=== PATIENT | female | born 1965 | race Caucasian/White ===

== ENCOUNTER 2016-10-06 12:01 | Emergency (ER) | payer BC ==
[2016-10-06 13:48] VITALS: BP 225/109
[2016-10-06 18:19] LABS: Hematocrit 39 % (35-47); Hemoglobin 12.5 g/dl (12.0-16.0); Mean Corpuscular HGB Conc 32 g/dl (31-36); Mean Corpuscular Hemoglobin 29 pg (27-31); Mean Corpuscular Volume 88 fL (80-97); Mean Platelet Volume 9 um3 (7.4-10.4); Red Cell Distribution Width 14 % (10.5-15); White Blood Count 7.4 10^3/ul (3.5-10.8)
[2016-10-06 18:39] LABS: Albumin 4.1 g/dL (3.2-5.2); BUN/Creatinine Ratio 9.7 (8-20); EGFR African American 110.7 (>60); EGFR Non-African American 86.1 (>60); Globulin 2.9 g/dL (2-4); Magnesium 2.1 mg/dL (1.9-2.7); Total Bilirubin 0.6 mg/dL (0.2-1.0)
[2016-10-06 18:42] LABS: TSH (Thyroid Stimulating Horm) 2.18 mcIU/mL (0.34-5.60)
--- NOTE | 2016-10-27 12:59 | UC ---
Flo Rey Aidan, scribed for Georgia Kaufman MD on 10/06/16 at 1328 . 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 Associated symptoms include JAMES and an episode of palpitations this morning. She denies any cough, cold, nausea, SOB, abdominal pain, urinary symptoms, numbness or tingling , or any Hx of diabetes. Hx of AFiB. Pt thinks that she may have had a miscarriage several weeks ago, however, she had spotting and then never got a test. Her last period before that was in May. 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 Aggravating Factor(s): Nothing - unknown Alleviating Factor(s): Nothing - unknown Associated Signs And Symptoms: Negative: Negative - JAMES, episode of palpitations Related Hx: Similar Episode - She has had similar episodes of htn previously - Allergies/Home Medications Allergies/Adverse Reactions: Allergies Allergy/AdvReac Type Severity Reaction Status Date / Time Penicillins [PCN] Allergy See Comment Verified 10/06/16 12:12 Home Medications: Home Medications NK [No Home Medications Reported] 10/06/16 [History Confirmed 10/06/16] PMH/Surg Hx/FS Hx/Imm Hx - Surgical History Surgical History: Yes Surgery Procedure, Year, and Place: cone bx and a d&c - Family History Known Family History: Positive: Hypertension, Diabetes, Renal Disease, Respiratory Disease - COPD - Social History Alcohol Use: Occasionally Substance Use Type: None Smoking Status (MU): Never Smoked Tobacco Review of Systems Constitutional: Negative Skin: Negative Eyes: Negative ENT: Negative Respiratory: Negative Cardiovascular: Palpitations, Other - HTN Gastrointestinal: Negative Genitourinary: Negative Motor: Negative Neurovascular: Negative Musculoskeletal: Negative Neurological: Headache Psychological: Negative All Other Systems Reviewed And Are Negative: Yes Physical Exam Triage Information Reviewed: Yes Appearance: Well-Nourished Vital Signs: Initial Vital Signs Temp 98.6 F 10/06/16 12:08 Pulse 69 10/06/16 12:08 Resp 18 10/06/16 12:08 BP 154/102 10/06/16 12:08 Pulse Ox 99 10/06/16 12:08 Vital Signs Reviewed: Yes Eye Exam: Normal ENT Exam: Normal ENT: Positive: Normal ENT inspection Respiratory Exam: Normal, Other - regular rate, no dyspnea, no tachypnea Cardiovascular Exam: Normal, Other - good general skin color, regular rate, good capillary refill Abdominal Exam: Normal Abdomen Description: Positive: Nontender, No Organomegaly, Soft Bowel Sounds: Positive: Present Musculoskeletal Exam: Normal Musculoskeletal: Positive: Strength Intact Neurological Exam: Normal, Other - nonfocal, grossly intact Psychological Exam: Normal, Other - responds easily and appropriately Skin Exam: Normal, Other - no visible or reported rash Diagnostics - EKG Cardiac Rate: Bradycardia - 55 BPM Cardiac Rhythm: Sinus: Normal - EKG 4930: SINUS RHYTHM Hypertension Course/Dx - Course Course Of Treatment: No new problems in CCC. Reviewed coa / need for f/u. Questions answered to the best of my ability. - Differential Dx/Diagnosis Provider Diagnoses: htn Discharge - Discharge Plan Condition: Stable Disposition: HOME Patient Education Materials: Hypertension (ED) Referrals: Echo Fairchild [Primary Care Provider] - Additional Instructions: Your blood pressure today was 154/102, which is hypertensive. Please follow up with your primary care provider for blood pressure monitoring and evaluation. Blood pressure elevation as above. Blood tests in ordered today: cbc cmp tsh magnesium level Go to the Emergency Department for any problems, including albeit not limited to : chest pain, new palpitations, shortness of breath, headache, weakness. 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 Call Echo Wheatley NP today to schedule follow up appointment with her tomorrow. The documentation as recorded by the Flo swenson Aidan accurately reflects the service I personally performed and the decisions made by me, Georgia Kaufman MD.
== END 2016-10-06 13:50 | disposition home or self-care (01) ==
LOC: UCEAST 12:01
DX: I10 Essential (primary) hypertension (principal); Z88.0 Allergy status to penicillin
CPT/HCPCS: 36415; 80053; 81003; 83735; 84443; 84702; 85025; 93005; 99202; G0463